=== PATIENT | male | born 1950 | race Caucasian/White ===

== ENCOUNTER 2019-01-27 19:48 | Inpatient (IN) | payer MEDICARE, OTHER ==
[~2019-01-27] VITALS: Ht 175.3 cm; Wt 88.1 kg
[~2019-01-27 19:48] MED LIST: ATOR10TA69 PO; CHOL100046 PO; DIPH25CA83 PO; DONE5TAB33 PO; FINA5TAB11 PO; GABA-529 PO; INSULIN ASPART; INSULIN GLARGINE; MELA5TAB3 PO; MEMA10TA2 PO; PROP80CA2 PO; SERT25TA74 PO; TAMS0.4C31 PO
[2019-01-27] MEDS ORDERED: ONDANSETRON HCL 4MG/2ML INJ IV STA (20:07)
[2019-01-27] MEDS ORDERED: SODIUM CHLORIDE 0.9% 1,000 ML IV ONE ×3 (20:07→23:30)
[2019-01-27 20:24] LABS: BG BASE EXCESS -20.3 mmol/L (-2.0-2.0); BG CARBOXYHEMOGLOBIN 0.8 % (0.5-1.5); BG DEOXYHEMOGLOBIN 7.3 % (0.0-5.0); BG FRACTION INSPIRED OXYGEN 21; BG HCO3 ACT 8.3 mmol/L (22.0-26.0); BG METHEMOGLOBIN 0.5 % (0.0-1.5); BG OXYGEN SATURATION 92.6 % (92.0-98.5); BG OXYHEMOGLOBIN 91.4 % (94.0-97.0); BG PCO2 28.2 mmHg (35.0-45.0); BG PH 7.085 (7.350-7.450); BG PO2 69.8 mmHg (75.0-100.0); BG SAMPLE SITE LEFT BRACHIAL; BG TOTAL HEMOGLOBIN 14.8 g/dL (12.0-18.0); BG VENT MODE ROOM AIR
[2019-01-27 20:58] LABS: BASOPHILS % 0.8 % (0.0-2.0); EOSINOPHILS % 0.1 % (0.0-5.0); HEMATOCRIT. 47.3 % (42.0-52.0); HEMOGLOBIN. 14.7 g/dL (14.0-18.0); LYMPHOCYTES % 7.4 % (20.0-50.0); MEAN CORPUSCULAR HEMOGLOBIN 31.2 pg (28.0-32.0); MEAN CORPUSCULAR VOLUME 100.2 fL (80.0-94.0); MONOCYTES % 6.5 % (2.0-8.0); NEUTROPHILS % 85.2 % (40.0-76.0); PLATELET 188 x1000/uL (130-400); RED BLOOD CELL COUNT 4.72 mill/uL (4.7-6.1); RED CELL DISTRIBUTION WIDTH 15.9 % (11.6-14.6)
[2019-01-27 21:02] LABS: CHLORIDE 101 mEq/L (98-107)
[2019-01-27 21:11] LABS: PROTHROMBIN TIME 82.4 sec (9.1-11.1)
[2019-01-27] MEDS ORDERED: SODIUM CHLORIDE 0.9% 1,000 ML IV SCH (21:28)
[2019-01-27] MEDS ORDERED: CLONIDINE 0.1MG TABLET PO PRN (21:30)
[2019-01-27] MEDS ORDERED: ACETAMINOPHEN 325MG TABLET PO PRN (21:30)
[2019-01-27] MEDS ORDERED: INSULIN REGULAR (DRIP) 100 UNITS in SODIUM CHLORIDE 0.9% 99 ML IV SCH (21:30)
[2019-01-27] MEDS ORDERED: MAGNESIUM/ALUMINUM HYDROXIDE/SIMETHICONE 30ML UDC PO PRN (21:30)
[2019-01-27] MEDS ORDERED: DOCUSATE SODIUM 100MG CAPSULE PO PRN (21:30)
[2019-01-27] MEDS ORDERED: IPRATROPIUM/ALBUTEROL 0.5-3(2.5)MG/3ML NEB INH PRN (21:30)
[2019-01-27 21:45] LABS: INR 8.5
[2019-01-27 22:02] LABS: BETA HYDROXYBUTYRATE 15.5 mMol/L (0.0-0.3)
[2019-01-27 22:45] VITALS: BP 98/55
[2019-01-27] MEDS ORDERED: AZITHROMYCIN 500 MG in DEXT 5% WATER 250 ML IV SCH (22:45)
[2019-01-27] MEDS ORDERED: CEFTRIAXONE 1 G PREMIX 50 ML IV ONE (22:45)
[2019-01-27 23:00] VITALS: BP 90/66
[2019-01-27 23:15] VITALS: BP 88/51
[2019-01-27 23:30] VITALS: BP 97/49
[2019-01-27] MEDS ORDERED: DEXTROSE 50% WATER 50ML SYRINGE IV PRN ×2 (23:36→23:37)
[2019-01-27 23:45] VITALS: BP 95/54
[2019-01-27] MEDS ORDERED: TRAMADOL 50MG TABLET PO PRN (23:49)
[2019-01-28] VITALS (80 sets, daily range): BP systolic 83–117; BP diastolic 40–77
[2019-01-28] MEDS ORDERED: INSULIN REGULAR (DRIP) 100 UNITS in SODIUM CHLORIDE 0.9% 99 ML IV SCH ×2
[2019-01-28] MEDS: BLOOD SUGAR DIAGNOSTIC STRIP TEST SCH ×15 (00:16→23:36)
[2019-01-28] MEDS ORDERED: NOREPINEPHRINE 4 MG in DEXT 5% WATER 246 ML IV PRN (01:00)
[2019-01-28 01:03] LABS: T4 FREE 0.85 ng/dL (0.76-1.46)
[2019-01-28 01:49] LABS: FOLIC ACID (FOLATE) SERUM > 20.00 ng/mL (>5.38); VITAMIN B12 SERUM 1943 pg/mL (211-911)
[2019-01-28] MEDS: DEXT 5% WATER + KCL 20MEQ/L 1,000 ML IV SCH ×3 (05:12→22:01)
[2019-01-28 05:55] LABS: BASOPHILS % 0.2 % (0.0-2.0); HEMATOCRIT. 40.8 % (42.0-52.0); HEMOGLOBIN. 13.2 g/dL (14.0-18.0); LYMPHOCYTES % 8.5 % (20.0-50.0); MEAN CORPUSCULAR HEMOGLOBIN 30.7 pg (28.0-32.0); MEAN PLATELET VOLUME 8.4 fl (7.4-10.4); MONOCYTES % 14.9 % (2.0-8.0); NEUTROPHILS % 76.4 % (40.0-76.0); PLATELET 179 x1000/uL (130-400); RED BLOOD CELL COUNT 4.29 mill/uL (4.7-6.1); RED CELL DISTRIBUTION WIDTH 15.1 % (11.6-14.6)
[2019-01-28 06:02] LABS: PHOSPHORUS 3.6 mg/dL (2.5-4.9)
[2019-01-28 07:24] LABS: CLARITY URINE CLEAR (CLEAR); COLOR URINE YELLOW (YELLOW); KETONES URINE 3+ (NEGATIVE); LEUKOCYTE ESTERASE URINE NEGATIVE (NEGATIVE); NITRITE URINE NEGATIVE (NEGATIVE); OCCULT BLOOD URINE NEGATIVE (NEGATIVE); PROTEIN URINE NEGATIVE (NEGATIVE); SPECIFIC GRAVITY URINE 1.022 (1.005-1.030); UROBILINOGEN URINE 0.2 E.U./dL (0.2-1.0)
[2019-01-28] MEDS: PANTOPRAZOLE SODIUM 40 MG/VIAL IV SCH (08:47)
[2019-01-28] MEDS: DUTASTERIDE 0.5MG CAPSULE PO SCH (08:47)
[2019-01-28] MEDS: TAMSULOSIN HCL 0.4MG SR CAPSULE PO SCH (08:48)
[2019-01-28] MEDS ORDERED: ENOXAPARIN 40MG/0.4ML SYR SUBCUT SCH (09:00)
[2019-01-28] MEDS ORDERED: INSULIN GLARGINE UD 100 UNITS/ML SYR SUBCUT NR (12:00)
[2019-01-28] MEDS ORDERED: DEXTROSE 50% WATER 50ML SYRINGE IV PRN ×2 (12:00)
[2019-01-28] MEDS: INSULIN LISPRO 100 UNITS/ML SUBCUT SCH ×6 (12:00→23:36)
[2019-01-28] MEDS ORDERED: INSULIN LISPRO 100 UNITS/ML SUBCUT SCH (12:00)
[2019-01-28 13:18] LABS: BG BASE EXCESS -2.7 mmol/L (-2.0-2.0); BG CARBOXYHEMOGLOBIN 0.7 % (0.5-1.5); BG DEOXYHEMOGLOBIN 4.6 % (0.0-5.0); BG FRACTION INSPIRED OXYGEN 28; BG HCO3 ACT 24.8 mmol/L (22.0-26.0); BG METHEMOGLOBIN 0.3 % (0.0-1.5); BG OXYGEN SATURATION 95.4 % (92.0-98.5); BG OXYHEMOGLOBIN 94.4 % (94.0-97.0); BG PCO2 54.4 mmHg (35.0-45.0); BG PH 7.277 (7.350-7.450); BG PO2 72.9 mmHg (75.0-100.0); BG SAMPLE SITE RIGHT RADIAL; BG TOTAL HEMOGLOBIN 13.7 g/dL (12.0-18.0); BG VENT MODE NASAL CANNULA
[2019-01-28] MEDS ORDERED: BLOOD SUGAR DIAGNOSTIC STRIP TEST SCH ×2 (16:30)
[2019-01-29] VITALS (24 sets, daily range): BP systolic 99–140; BP diastolic 53–85
[2019-01-29] MEDS: INSULIN LISPRO 100 UNITS/ML SUBCUT SCH ×9 (03:57→23:25)
[2019-01-29] MEDS: BLOOD SUGAR DIAGNOSTIC STRIP TEST SCH ×6 (03:57→23:25)
[2019-01-29 06:14] LABS: PROTHROMBIN TIME 86.8 sec (9.1-11.1)
[2019-01-29] MEDS: DEXT 5% WATER + KCL 20MEQ/L 1,000 ML IV SCH ×2 (08:19→19:45)
[2019-01-29] MEDS: DUTASTERIDE 0.5MG CAPSULE PO SCH (09:00)
[2019-01-29] MEDS: TAMSULOSIN HCL 0.4MG SR CAPSULE PO SCH (09:00)
[2019-01-29] MEDS: PANTOPRAZOLE SODIUM 40 MG/VIAL IV SCH (09:43)
[2019-01-29] MEDS ORDERED: INSULIN GLARGINE UD 100 UNITS/ML SYR SUBCUT SCH (10:00)
[2019-01-29] MEDS: ONDANSETRON HCL 4MG/2ML INJ IV PRN (22:38)
[2019-01-30] VITALS (72 sets, daily range): BP systolic 86–157; BP diastolic 53–94
[2019-01-30] MEDS ORDERED: DILTIAZEM HCL 125 MG in DEXT 5% WATER 100 ML IV PRN ×2 (02:15→10:40)
[2019-01-30] MEDS: BLOOD SUGAR DIAGNOSTIC STRIP TEST SCH ×6 (04:16→23:57)
[2019-01-30] MEDS: INSULIN LISPRO 100 UNITS/ML SUBCUT SCH ×9 (05:02→23:57)
[2019-01-30 05:22] LABS: BASOPHILS % 0.5 % (0.0-2.0); EOSINOPHILS % 0.2 % (0.0-5.0); HEMATOCRIT. 41.2 % (42.0-52.0); HEMOGLOBIN. 13.6 g/dL (14.0-18.0); LYMPHOCYTES % 18.7 % (20.0-50.0); MEAN CORPUSCULAR HEMOGLOBIN 31.3 pg (28.0-32.0); MEAN CORPUSCULAR VOLUME 94.5 fL (80.0-94.0); MEAN PLATELET VOLUME 8.4 fl (7.4-10.4); MONOCYTES % 10.7 % (2.0-8.0); NEUTROPHILS % 69.9 % (40.0-76.0); PLATELET 143 x1000/uL (130-400); RED BLOOD CELL COUNT 4.36 mill/uL (4.7-6.1); RED CELL DISTRIBUTION WIDTH 15.4 % (11.6-14.6)
[2019-01-30 05:37] LABS: CHLORIDE 105 mEq/L (98-107)
[2019-01-30 05:44] LABS: INR 3.5; PROTHROMBIN TIME 34.9 sec (9.1-11.1)
[2019-01-30] MEDS: DEXT 5% WATER + KCL 20MEQ/L 1,000 ML IV SCH ×2 (05:54→17:17)
[2019-01-30] MEDS: PANTOPRAZOLE SODIUM 40 MG/VIAL IV SCH (08:27)
[2019-01-30] MEDS: DUTASTERIDE 0.5MG CAPSULE PO SCH (09:00)
[2019-01-30] MEDS: TAMSULOSIN HCL 0.4MG SR CAPSULE PO SCH (09:00)
[2019-01-30] MEDS: GUAIFENESIN 200MG/10ML SUGAR FREE UDC PO PRN (20:04)
[2019-01-30] MEDS: METOPROLOL TARTRATE 50MG TABLET PO SCH (20:14)
[2019-01-30 20:19] LABS: T4 FREE 1.24 ng/dL (0.76-1.46)
[2019-01-30] MEDS: ACETAMINOPHEN 650MG/20.3ML UDC PO PRN (22:11)
[2019-01-30 23:06] LABS: BASOPHILS % 0.4 % (0.0-2.0); EOSINOPHILS % 0.2 % (0.0-5.0); HEMATOCRIT. 42.7 % (42.0-52.0); LYMPHOCYTES % 15.5 % (20.0-50.0); MEAN CORPUSCULAR HEMOGLOBIN 30.8 pg (28.0-32.0); MEAN CORPUSCULAR VOLUME 94.3 fL (80.0-94.0); MEAN PLATELET VOLUME 8.4 fl (7.4-10.4); MONOCYTES % 10.2 % (2.0-8.0); NEUTROPHILS % 73.7 % (40.0-76.0); PLATELET 132 x1000/uL (130-400); RED BLOOD CELL COUNT 4.53 mill/uL (4.7-6.1); RED CELL DISTRIBUTION WIDTH 14.8 % (11.6-14.6)
[2019-01-30 23:19] LABS: CHLORIDE 102 mEq/L (98-107)
[2019-01-30 23:28] LABS: CREATINE KINASE 47 IU/L (39-308)
[2019-01-30 23:30] LABS: CREATINE KINASE MB FRACTION < 1.0 ng/mL (0.5-3.6)
[2019-01-31] VITALS (26 sets, daily range): BP systolic 91–129; BP diastolic 45–72
[2019-01-31] MEDS: DEXT 5% WATER + KCL 20MEQ/L 1,000 ML IV SCH (02:32)
[2019-01-31] MEDS: ACETAMINOPHEN 650MG/20.3ML UDC PO PRN (04:00)
[2019-01-31] MEDS: INSULIN LISPRO 100 UNITS/ML SUBCUT SCH ×8 (04:07→20:27)
[2019-01-31] MEDS: BLOOD SUGAR DIAGNOSTIC STRIP TEST SCH ×5 (04:08→20:27)
[2019-01-31 05:33] LABS: INR 2.2
[2019-01-31 05:44] LABS: CREATINE KINASE MB FRACTION < 1.0 ng/mL (0.5-3.6)
[2019-01-31 08:00] LABS: CREATINE KINASE 48 IU/L (39-308)
[2019-01-31] MEDS: DUTASTERIDE 0.5MG CAPSULE PO SCH (09:00)
[2019-01-31] MEDS: GUAIFENESIN 200MG/10ML SUGAR FREE UDC PO PRN ×3 (09:27→22:44)
[2019-01-31] MEDS: PANTOPRAZOLE SODIUM 40 MG/VIAL IV SCH (09:30)
[2019-01-31] MEDS: TAMSULOSIN HCL 0.4MG SR CAPSULE PO SCH (09:52)
[2019-01-31] MEDS: METOPROLOL TARTRATE 50MG TABLET PO SCH ×2 (09:52→20:27)
[2019-01-31] MEDS: INSULIN GLARGINE UD 100 UNITS/ML SYR SUBCUT SCH (11:57)
[2019-01-31] MEDS: DILTIAZEM HCL 60MG TABLET PO SCH ×2 (12:00→18:00)
[2019-01-31 16:59] LABS: CREATINE KINASE 41 IU/L (39-308)
[2019-01-31 17:00] LABS: CREATINE KINASE MB FRACTION < 1.0 ng/mL (0.5-3.6)
[2019-01-31] MEDS ORDERED: WARFARIN SODIUM 1MG TABLET PO NR (18:00)
[2019-02-01] VITALS (19 sets, daily range): BP systolic 92–121; BP diastolic 46–66
[2019-02-01] MEDS: ZOLPIDEM TARTRATE 5MG TABLET PO PRN ×2 (02:44→21:19)
[2019-02-01] MEDS: DILTIAZEM HCL 60MG TABLET PO SCH ×5 (06:13→23:15)
[2019-02-01] MEDS: BLOOD SUGAR DIAGNOSTIC STRIP TEST SCH ×4 (06:13→20:49)
[2019-02-01 06:36] LABS: BASOPHILS % 0.7 % (0.0-2.0); EOSINOPHILS % 3.8 % (0.0-5.0); HEMATOCRIT. 40.3 % (42.0-52.0); HEMOGLOBIN. 13.3 g/dL (14.0-18.0); LYMPHOCYTES % 27.8 % (20.0-50.0); MEAN CORPUSCULAR HEMOGLOBIN 31.2 pg (28.0-32.0); MEAN CORPUSCULAR VOLUME 94.6 fL (80.0-94.0); MEAN PLATELET VOLUME 8.7 fl (7.4-10.4); MONOCYTES % 10.3 % (2.0-8.0); NEUTROPHILS % 57.4 % (40.0-76.0); PLATELET 154 x1000/uL (130-400); RED BLOOD CELL COUNT 4.26 mill/uL (4.7-6.1); RED CELL DISTRIBUTION WIDTH 14.5 % (11.6-14.6)
[2019-02-01 06:41] LABS: INR 1.3; PROTHROMBIN TIME 13.1 sec (9.1-11.1)
[2019-02-01 06:58] LABS: CHLORIDE 101 mEq/L (98-107)
[2019-02-01] MEDS: DUTASTERIDE 0.5MG CAPSULE PO SCH (09:14)
[2019-02-01] MEDS: PANTOPRAZOLE SODIUM 40 MG/VIAL IV SCH (09:14)
[2019-02-01] MEDS: TAMSULOSIN HCL 0.4MG SR CAPSULE PO SCH (09:15)
[2019-02-01] MEDS: METOPROLOL TARTRATE 50MG TABLET PO SCH ×2 (09:15→20:22)
[2019-02-01] MEDS: INSULIN GLARGINE UD 100 UNITS/ML SYR SUBCUT SCH (09:16)
[2019-02-01] MEDS: INSULIN LISPRO 100 UNITS/ML SUBCUT SCH ×7 (09:17→20:50)
[2019-02-01] MEDS ORDERED: WARFARIN SODIUM 3MG TABLET PO NR (18:00)
[2019-02-02] VITALS (31 sets, daily range): BP systolic 78–141; BP diastolic 36–82
[2019-02-02 05:43] LABS: INR 1.2
[2019-02-02] MEDS: DILTIAZEM HCL 60MG TABLET PO SCH ×4 (06:00→23:26)
[2019-02-02] MEDS: BLOOD SUGAR DIAGNOSTIC STRIP TEST SCH ×4 (06:18→21:00)
[2019-02-02] MEDS: INSULIN LISPRO 100 UNITS/ML SUBCUT SCH ×7 (06:18→21:13)
[2019-02-02] MEDS: DUTASTERIDE 0.5MG CAPSULE PO SCH (09:30)
[2019-02-02] MEDS: METOPROLOL TARTRATE 50MG TABLET PO SCH ×2 (09:31→21:08)
[2019-02-02] MEDS: TAMSULOSIN HCL 0.4MG SR CAPSULE PO SCH (09:31)
[2019-02-02] MEDS: PANTOPRAZOLE SODIUM 40 MG/VIAL IV SCH (09:32)
[2019-02-02] MEDS: INSULIN GLARGINE UD 100 UNITS/ML SYR SUBCUT SCH (09:32)
[2019-02-02 12:32] LABS: BG BASE EXCESS 6.9 mmol/L (-2.0-2.0); BG CARBOXYHEMOGLOBIN 0.6 % (0.5-1.5); BG DEOXYHEMOGLOBIN 7.6 % (0.0-5.0); BG FRACTION INSPIRED OXYGEN 28; BG HCO3 ACT 31.4 mmol/L (22.0-26.0); BG METHEMOGLOBIN 0.3 % (0.0-1.5); BG OXYGEN SATURATION 92.3 % (92.0-98.5); BG OXYHEMOGLOBIN 91.5 % (94.0-97.0); BG PCO2 44.3 mmHg (35.0-45.0); BG PH 7.469 (7.350-7.450); BG PO2 60.2 mmHg (75.0-100.0); BG SAMPLE SITE LEFT RADIAL; BG TOTAL HEMOGLOBIN 13.6 g/dL (12.0-18.0); BG VENT MODE NASAL CANNULA
[2019-02-02] MEDS: ONDANSETRON HCL 4MG/2ML INJ IV PRN (14:32)
[2019-02-02] MEDS: LACTULOSE 20G/30ML UDC PO SCH ×3 (15:53→20:53)
[2019-02-02] MEDS ORDERED: LACTULOSE 20G/30ML UDC PO STA (15:54)
[2019-02-02] MEDS ORDERED: DOCUSATE SODIUM 100MG CAPSULE PO SCH (17:00)
[2019-02-02] MEDS: DOCUSATE SODIUM 100MG CAPSULE PO SCH (17:18)
[2019-02-02] MEDS ORDERED: WARFARIN SODIUM 3MG TABLET PO NR (18:00)
[2019-02-02] MEDS: GUAIFENESIN 200MG/10ML SUGAR FREE UDC PO PRN (19:22)
[2019-02-02] MEDS ORDERED: POLYETHYLENE GLYCOL 3350 (17GM) 1 DOSE PACK PO SCH ×2 (21:00)
[2019-02-02] MEDS ORDERED: INSULIN GLARGINE UD 100 UNITS/ML SYR SUBCUT SCH (22:00)
[2019-02-03] VITALS (23 sets, daily range): BP systolic 81–129; BP diastolic 20–74
[2019-02-03] MEDS: ONDANSETRON HCL 4MG/2ML INJ IV PRN (01:45)
[2019-02-03 05:59] LABS: CHLORIDE 103 mEq/L (98-107)
[2019-02-03 06:03] LABS: BASOPHILS % 0.6 % (0.0-2.0); EOSINOPHILS % 5.3 % (0.0-5.0); HEMATOCRIT. 37.8 % (42.0-52.0); HEMOGLOBIN. 12.6 g/dL (14.0-18.0); LYMPHOCYTES % 31.5 % (20.0-50.0); MEAN CORPUSCULAR HEMOGLOBIN 31.2 pg (28.0-32.0); MEAN CORPUSCULAR VOLUME 94.1 fL (80.0-94.0); MEAN PLATELET VOLUME 8.7 fl (7.4-10.4); MONOCYTES % 11.8 % (2.0-8.0); NEUTROPHILS % 50.8 % (40.0-76.0); PLATELET 192 x1000/uL (130-400); RED BLOOD CELL COUNT 4.02 mill/uL (4.7-6.1); RED CELL DISTRIBUTION WIDTH 14.4 % (11.6-14.6)
[2019-02-03] MEDS: BLOOD SUGAR DIAGNOSTIC STRIP TEST SCH ×2 (06:18→11:36)
[2019-02-03] MEDS: INSULIN LISPRO 100 UNITS/ML SUBCUT SCH ×4 (06:18→11:45)
[2019-02-03] MEDS: DILTIAZEM HCL 60MG TABLET PO SCH (06:19)
[2019-02-03 06:20] LABS: INR 1.1; PROTHROMBIN TIME 11.4 sec (9.1-11.1)
[2019-02-03] MEDS: PANTOPRAZOLE SODIUM 40 MG/VIAL IV SCH (08:14)
[2019-02-03] MEDS: GUAIFENESIN 200MG/10ML SUGAR FREE UDC PO PRN (08:14)
[2019-02-03] MEDS: DUTASTERIDE 0.5MG CAPSULE PO SCH (08:19)
[2019-02-03] MEDS: TAMSULOSIN HCL 0.4MG SR CAPSULE PO SCH (08:19)
[2019-02-03] MEDS: DOCUSATE SODIUM 100MG CAPSULE PO SCH (08:21)
[2019-02-03] MEDS ORDERED: METOPROLOL TARTRATE 25MG TABLET PO SCH (09:00)
[2019-02-03 09:24] LABS: BG BASE EXCESS 5.8 mmol/L (-2.0-2.0); BG CARBOXYHEMOGLOBIN 0.1 % (0.5-1.5); BG FRACTION INSPIRED OXYGEN 28; BG HCO3 ACT 30.7 mmol/L (22.0-26.0); BG METHEMOGLOBIN 0.7 % (0.0-1.5); BG OXYHEMOGLOBIN 97.2 % (94.0-97.0); BG PCO2 45.3 mmHg (35.0-45.0); BG PH 7.449 (7.350-7.450); BG PO2 110.8 mmHg (75.0-100.0); BG SAMPLE SITE RIGHT BRACHIAL; BG TOTAL HEMOGLOBIN 14.4 g/dL (12.0-18.0); BG VENT MODE NASAL CANNULA
[2019-02-03] MEDS ORDERED: BISACODYL 10MG SUPP PR PRN (16:45)
[2019-02-03] MEDS ORDERED: WARFARIN SODIUM 5MG TABLET PO NR (18:00)
[2019-02-04] MEDS ORDERED: SODIUM CHLORIDE 0.9% 1,000 ML IV SCH (12:15)
== END 2019-02-03 17:00 | DRG 637 ==
LOC: ER 19:48 → EDBEDREQSVC 20:53 → EDBEDREQTM 20:53 → ENRESERV 21:23 → MICUSO 21:24 → EDBEDREQ 21:25 → EDBEDREQTM 21:25 → SUPCPDRO 21:28
PROVIDERS: ADMIT Internal Medicine; ATTEND Internal Medicine
DX: E11.10 Type 2 diabetes mellitus with ketoacidosis without coma (principal); N17.0 Acute kidney failure with tubular necrosis; D68.9 Coagulation defect, unspecified; D68.59 Other primary thrombophilia; G93.40 Encephalopathy, unspecified; J98.11 Atelectasis; H54.8 Legal blindness, as defined in USA; I10 Essential (primary) hypertension; F32.9 Major depressive disorder, single episode, unspecified; I95.9 Hypotension, unspecified; R26.9 Unspecified abnormalities of gait and mobility; I48.0 Paroxysmal atrial fibrillation; N32.89 Other specified disorders of bladder; N40.0 Benign prostatic hyperplasia without lower urinary tract symptoms; R13.10 Dysphagia, unspecified; T45.515A Adverse effect of anticoagulants, initial encounter; Y92.89 Other specified places as the place of occurrence of the external cause; Z79.01 Long term (current) use of anticoagulants; Z86.718 Personal history of other venous thrombosis and embolism; Z86.73 Personal history of transient ischemic attack (TIA), and cerebral infarction without residual deficits; Z88.1 Allergy status to other antibiotic agents; Z79.899 Other long term (current) drug therapy
CPT/HCPCS: 36415; 36600; 70551; 71045; 74176; 76770; 80048; 80061; 82010; 82375; 82550; 82553; 82607; 82746; 82805; 82962; 83036; 83540; 83550; 83605; 83735; 83880; 84100; 84439; 84443; 84484; 85379; 92610; 93005; 93306; 93970; 96361; 96374; 97110; 97162; 97166; 97530; 97535; 99291; C9113; J0456; J1815; J2405; J3490; J7030; J7050; J7060; A4315

== ENCOUNTER 2019-02-03 17:00 | Inpatient (IN) | payer MEDICARE, OTHER ==
[~2019-02-03] VITALS: Ht 175.3 cm; Wt 80.4 kg
[~2019-02-03 17:00] MED LIST changes: +LIDOCAINE HCL/PF 1% 2ML VIAL ONE
[2019-02-03 17:10] VITALS: BP 116/56
[2019-02-03 18:00] VITALS: BP 116/56
[2019-02-03 20:30] VITALS: BP 111/50
[2019-02-03] MEDS ORDERED: CLONIDINE 0.1MG TABLET PO PRN (20:45)
[2019-02-03] MEDS ORDERED: MAGNESIUM/ALUMINUM HYDROXIDE/SIMETHICONE 30ML UDC PO PRN (20:45)
[2019-02-03] MEDS ORDERED: ACETAMINOPHEN 500MG TABLET PO PRN (20:45)
[2019-02-03] MEDS ORDERED: IPRATROPIUM/ALBUTEROL 0.5-3(2.5)MG/3ML NEB HHN PRN ×2 (20:45→21:15)
[2019-02-03] MEDS ORDERED: DEXTROSE 50% WATER 50ML SYRINGE IV PRN (21:02)
[2019-02-03] MEDS ORDERED: ACETAMINOPHEN 650MG/20.3ML UDC PO PRN (21:15)
[2019-02-03] MEDS: POLYETHYLENE GLYCOL 3350 (17GM) 1 DOSE PACK PO SCH (21:32)
[2019-02-03] MEDS: BLOOD SUGAR DIAGNOSTIC STRIP TEST SCH (21:32)
[2019-02-03] MEDS: ACETAMINOPHEN 325MG TABLET PO PRN (21:32)
[2019-02-03] MEDS: INSULIN LISPRO 100 UNITS/ML SUBCUT SCH (21:36)
[2019-02-03] MEDS: INSULIN GLARGINE UD 100 UNITS/ML SYR SUBCUT SCH (21:52)
[2019-02-03] MEDS: DIPHENHYDRAMINE 50MG CAPSULE PO PRN (23:26)
[2019-02-04] MEDS ORDERED: WARFARIN SODIUM 5MG TABLET PO NR ×3 (00:45→18:00)
[2019-02-04] MEDS ORDERED: WARFARIN SODIUM 2MG TABLET PO NR (00:48)
[2019-02-04] MEDS: BLOOD SUGAR DIAGNOSTIC STRIP TEST SCH ×4 (06:23→21:46)
[2019-02-04 07:33] LABS: INR 1.1; PROTHROMBIN TIME 11.4 sec (9.1-11.1)
[2019-02-04 07:36] LABS: CHLORIDE 102 mEq/L (98-107)
[2019-02-04 07:40] LABS: BASOPHILS % 0.6 % (0.0-2.0); EOSINOPHILS % 5.5 % (0.0-5.0); HEMATOCRIT. 38.1 % (42.0-52.0); HEMOGLOBIN. 12.6 g/dL (14.0-18.0); LYMPHOCYTES % 34.8 % (20.0-50.0); MEAN CORPUSCULAR HEMOGLOBIN 31.2 pg (28.0-32.0); MEAN CORPUSCULAR VOLUME 94.2 fL (80.0-94.0); MEAN PLATELET VOLUME 8.6 fl (7.4-10.4); MONOCYTES % 12.7 % (2.0-8.0); NEUTROPHILS % 46.4 % (40.0-76.0); PLATELET 209 x1000/uL (130-400); RED BLOOD CELL COUNT 4.04 mill/uL (4.7-6.1)
[2019-02-04] MEDS: DUTASTERIDE 0.5MG CAPSULE PO SCH (08:00)
[2019-02-04] MEDS: TAMSULOSIN HCL 0.4MG SR CAPSULE PO SCH (08:06)
[2019-02-04] MEDS: ACETAMINOPHEN 325MG TABLET PO PRN ×2 (08:06→14:37)
[2019-02-04] MEDS: DOCUSATE SODIUM 100MG CAPSULE PO SCH ×2 (08:06→17:43)
[2019-02-04 08:07] VITALS: BP 104/41
[2019-02-04] MEDS: INSULIN LISPRO 100 UNITS/ML SUBCUT SCH ×7 (08:09→21:52)
[2019-02-04] MEDS: METOPROLOL TARTRATE 25MG TABLET PO SCH ×2 (08:10→20:40)
[2019-02-04] MEDS: PANTOPRAZOLE 40MG DR TABLET PO SCH (08:10)
[2019-02-04] MEDS ORDERED: DOCUSATE SODIUM 100MG CAPSULE PO SCH (09:00)
[2019-02-04] MEDS: ONDANSETRON HCL 4MG TABLET PO PRN ×2 (09:59→14:37)
[2019-02-04] MEDS ORDERED: SODIUM CHLORIDE 0.9% 1,000 ML IV ONE (14:00)
[2019-02-04] MEDS: ENOXAPARIN 80MG/0.8ML SYR SUBCUT SCH ×2 (14:04→23:20)
[2019-02-04 20:00] VITALS: BP 96/54
[2019-02-04] MEDS: POLYETHYLENE GLYCOL 3350 (17GM) 1 DOSE PACK PO SCH (20:40)
[2019-02-04] MEDS: INSULIN GLARGINE UD 100 UNITS/ML SYR SUBCUT SCH (21:52)
[2019-02-04] MEDS: DIPHENHYDRAMINE 50MG CAPSULE PO PRN (23:19)
[2019-02-05] MEDS: GUAIFENESIN 200MG/10ML SUGAR FREE UDC PO PRN (03:43)
[2019-02-05] MEDS: ACETAMINOPHEN 325MG TABLET PO PRN ×2 (04:49→13:39)
[2019-02-05] MEDS: BLOOD SUGAR DIAGNOSTIC STRIP TEST SCH ×4 (06:32→21:53)
[2019-02-05 06:52] LABS: CHLORIDE 103 mEq/L (98-107)
[2019-02-05 06:55] LABS: EOSINOPHILS % 4.6 % (0.0-5.0); HEMATOCRIT. 36.4 % (42.0-52.0); HEMOGLOBIN. 12.1 g/dL (14.0-18.0); LYMPHOCYTES % 37.2 % (20.0-50.0); MEAN CORPUSCULAR HEMOGLOBIN 31.3 pg (28.0-32.0); MEAN CORPUSCULAR VOLUME 94.1 fL (80.0-94.0); MEAN PLATELET VOLUME 8.7 fl (7.4-10.4); MONOCYTES % 12.8 % (2.0-8.0); NEUTROPHILS % 44.4 % (40.0-76.0); PLATELET 206 x1000/uL (130-400); RED BLOOD CELL COUNT 3.87 mill/uL (4.7-6.1); RED CELL DISTRIBUTION WIDTH 14.1 % (11.6-14.6)
[2019-02-05 07:05] LABS: LDL CHOLESTEROL 74 mg/dL (5-100); PHOSPHORUS 2.5 mg/dL (2.5-4.9)
[2019-02-05 07:06] LABS: INR 1.2; PROTHROMBIN TIME 11.6 sec (9.1-11.1)
[2019-02-05 07:07] LABS: HDL CHOLESTEROL 41 mg/dL (40-59)
[2019-02-05 07:08] LABS: TOTAL IRON BINDING CAPACITY 256 ug/dL (250-450)
[2019-02-05 07:16] LABS: PROSTRATE SPECIFIC AG TOTAL 0.43 ng/mL (0.0-4.0)
[2019-02-05 07:19] LABS: FOLIC ACID (FOLATE) SERUM 12.7 ng/mL (>5.38)
[2019-02-05] MEDS: INSULIN LISPRO 100 UNITS/ML SUBCUT SCH ×7 (07:58→21:00)
[2019-02-05] MEDS: PANTOPRAZOLE 40MG DR TABLET PO SCH (08:00)
[2019-02-05] MEDS: DOCUSATE SODIUM 100MG CAPSULE PO SCH ×2 (08:00→17:00)
[2019-02-05] MEDS: DUTASTERIDE 0.5MG CAPSULE PO SCH (08:00)
[2019-02-05 08:08] VITALS: BP 107/49
[2019-02-05] MEDS: TAMSULOSIN HCL 0.4MG SR CAPSULE PO SCH (08:26)
[2019-02-05] MEDS: METOPROLOL TARTRATE 25MG TABLET PO SCH ×2 (08:27→21:58)
[2019-02-05] MEDS: NA PHOS,M-B/NA PHOS,DI-BA ENEMA 118ML PR SCH ×2 (09:15→11:47)
[2019-02-05] MEDS ORDERED: LACTULOSE 20G/30ML UDC PO PRN (09:15)
[2019-02-05] MEDS: ENOXAPARIN 80MG/0.8ML SYR SUBCUT SCH ×2 (12:37→23:37)
[2019-02-05] MEDS: DIPHENHYDRAMINE 50MG CAPSULE PO PRN ×2 (17:44→18:32)
[2019-02-05] MEDS ORDERED: WARFARIN SODIUM 5MG TABLET PO SCH (18:00)
[2019-02-05 20:00] VITALS: BP 125/67
[2019-02-05] MEDS: POLYETHYLENE GLYCOL 3350 (17GM) 1 DOSE PACK PO SCH (21:58)
[2019-02-05] MEDS: INSULIN GLARGINE UD 100 UNITS/ML SYR SUBCUT SCH (22:13)
[2019-02-06 06:58] LABS: INR 1.2; PROTHROMBIN TIME 12.3 sec (9.1-11.1)
[2019-02-06] MEDS: BLOOD SUGAR DIAGNOSTIC STRIP TEST SCH ×4 (07:07→21:26)
[2019-02-06 08:00] VITALS: BP 76/42
[2019-02-06] MEDS: DUTASTERIDE 0.5MG CAPSULE PO SCH (08:13)
[2019-02-06] MEDS: FAMOTIDINE 20MG TABLET PO SCH ×2 (08:14→21:16)
[2019-02-06] MEDS: METOPROLOL TARTRATE 25MG TABLET PO SCH ×2 (08:14→21:00)
[2019-02-06] MEDS: TAMSULOSIN HCL 0.4MG SR CAPSULE PO SCH (08:14)
[2019-02-06] MEDS: DOCUSATE SODIUM 100MG CAPSULE PO SCH ×2 (08:15→17:24)
[2019-02-06] MEDS: INSULIN LISPRO 100 UNITS/ML SUBCUT SCH ×5 (08:20→17:27)
[2019-02-06] MEDS: MIDODRINE HCL 2.5MG TABLET PO SCH ×3 (09:30→17:24)
[2019-02-06] MEDS: ACETAMINOPHEN 325MG TABLET PO PRN (09:31)
[2019-02-06] MEDS: ONDANSETRON HCL 4MG TABLET PO PRN (11:27)
[2019-02-06] MEDS ORDERED: SODIUM CHLORIDE 0.9% 250 ML IV ONE (11:45)
[2019-02-06] MEDS ORDERED: SODIUM CHLORIDE 0.9% 250 ML IV NR (12:00)
[2019-02-06] MEDS: ENOXAPARIN 80MG/0.8ML SYR SUBCUT SCH (12:40)
[2019-02-06] MEDS ORDERED: INSULIN LISPRO 100 UNITS/ML SUBCUT SCH (13:00)
[2019-02-06] MEDS: DIPHENHYDRAMINE 50MG CAPSULE PO PRN (15:31)
[2019-02-06] MEDS: INSULIN LISPRO (LOW DOSE) 100 UNITS/ML SUBCUT SCH (17:28)
[2019-02-06] MEDS ORDERED: WARFARIN SODIUM 5MG TABLET PO SCH (18:00)
[2019-02-06 20:00] VITALS: BP 90/48
[2019-02-06] MEDS: POLYETHYLENE GLYCOL 3350 (17GM) 1 DOSE PACK PO SCH (21:16)
[2019-02-06] MEDS: INSULIN GLARGINE UD 100 UNITS/ML SYR SUBCUT SCH (23:19)
[2019-02-07] MEDS: ENOXAPARIN 80MG/0.8ML SYR SUBCUT SCH ×3 (00:10→23:44)
[2019-02-07] MEDS: ACETAMINOPHEN 325MG TABLET PO PRN (03:37)
[2019-02-07] MEDS: BLOOD SUGAR DIAGNOSTIC STRIP TEST SCH ×4 (06:30→21:19)
[2019-02-07 06:51] LABS: INR 1.2; PROTHROMBIN TIME 12.1 sec (9.1-11.1)
[2019-02-07] MEDS: INSULIN LISPRO 100 UNITS/ML SUBCUT SCH ×3 (07:46→17:51)
[2019-02-07] MEDS: INSULIN LISPRO (LOW DOSE) 100 UNITS/ML SUBCUT SCH ×3 (07:47→17:50)
[2019-02-07 07:48] LABS: CHLORIDE 103 mEq/L (98-107)
[2019-02-07] MEDS: MIDODRINE HCL 2.5MG TABLET PO SCH ×3 (08:09→17:16)
[2019-02-07] MEDS: DUTASTERIDE 0.5MG CAPSULE PO SCH (08:09)
[2019-02-07] MEDS: FAMOTIDINE 20MG TABLET PO SCH ×2 (08:09→20:40)
[2019-02-07] MEDS: DOCUSATE SODIUM 100MG CAPSULE PO SCH ×2 (08:09→17:17)
[2019-02-07] MEDS: METOPROLOL TARTRATE 25MG TABLET PO SCH ×2 (08:10→20:40)
[2019-02-07 08:27] VITALS: BP 95/56
[2019-02-07 12:00] VITALS: BP 101/54
[2019-02-07 17:00] VITALS: BP 93/49
[2019-02-07] MEDS ORDERED: WARFARIN SODIUM 5MG TABLET PO SCH (18:00)
[2019-02-07 20:00] VITALS: BP_SYST 115; BP_SYST 88; BP_SYST 92; BP_DIAS 37; BP_DIAS 44; BP_DIAS 64
[2019-02-07] MEDS: TAMSULOSIN HCL 0.4MG SR CAPSULE PO SCH (20:40)
[2019-02-07] MEDS: POLYETHYLENE GLYCOL 3350 (17GM) 1 DOSE PACK PO SCH (20:40)
[2019-02-07] MEDS ORDERED: INSULIN GLARGINE UD 100 UNITS/ML SYR SUBCUT SCH (22:00)
[2019-02-07] MEDS: GUAIFENESIN 200MG/10ML SUGAR FREE UDC PO PRN (23:44)
[2019-02-08] MEDS ORDERED: COSYNTROPIN 0.25MG/ML VIAL IV ONE (05:15)
[2019-02-08 05:55] LABS: INR 1.3; PROTHROMBIN TIME 12.9 sec (9.1-11.1)
[2019-02-08] MEDS: BLOOD SUGAR DIAGNOSTIC STRIP TEST SCH ×4 (06:32→21:47)
[2019-02-08 07:58] VITALS: BP_SYST 101; BP_SYST 110; BP_SYST 92; BP_DIAS 44; BP_DIAS 48; BP_DIAS 52
[2019-02-08] MEDS: FAMOTIDINE 20MG TABLET PO SCH ×2 (08:28→21:41)
[2019-02-08] MEDS: DOCUSATE SODIUM 100MG CAPSULE PO SCH ×2 (08:28→16:43)
[2019-02-08] MEDS: MIDODRINE HCL 2.5MG TABLET PO SCH ×3 (08:28→16:43)
[2019-02-08] MEDS: DUTASTERIDE 0.5MG CAPSULE PO SCH (08:28)
[2019-02-08] MEDS: METOPROLOL TARTRATE 25MG TABLET PO SCH ×2 (08:29→21:00)
[2019-02-08] MEDS: INSULIN LISPRO 100 UNITS/ML SUBCUT SCH ×3 (08:32→17:25)
[2019-02-08] MEDS: INSULIN LISPRO (LOW DOSE) 100 UNITS/ML SUBCUT SCH ×3 (08:33→17:26)
[2019-02-08] MEDS: ENOXAPARIN 80MG/0.8ML SYR SUBCUT SCH (12:19)
[2019-02-08] MEDS ORDERED: WARFARIN SODIUM 7.5MG TABLET PO SCH (18:00)
[2019-02-08 20:00] VITALS: BP 94/35
[2019-02-08] MEDS: POLYETHYLENE GLYCOL 3350 (17GM) 1 DOSE PACK PO SCH (21:00)
[2019-02-08] MEDS: TAMSULOSIN HCL 0.4MG SR CAPSULE PO SCH (22:05)
[2019-02-08] MEDS: INSULIN GLARGINE UD 100 UNITS/ML SYR SUBCUT SCH (22:09)
[2019-02-09] MEDS: ENOXAPARIN 80MG/0.8ML SYR SUBCUT SCH ×3 (00:56→23:30)
[2019-02-09] MEDS: BLOOD SUGAR DIAGNOSTIC STRIP TEST SCH ×4 (06:09→21:27)
[2019-02-09 06:20] LABS: HEMATOCRIT 36.9 % (42.0-52.0); HEMOGLOBIN 12.1 g/dL (14.0-18.0); MEAN CORPUSCULAR HEMOGLOBIN 30.9 pg (28.0-32.0); MEAN CORPUSCULAR VOLUME 94.4 fL (80.0-94.0); PLATELET 229 x1000/uL (130-400); RED BLOOD CELL COUNT 3.91 mill/uL (4.7-6.1); RED CELL DISTRIBUTION WIDTH 14.5 % (11.6-14.6)
[2019-02-09 06:24] LABS: INR 1.4; PROTHROMBIN TIME 13.6 sec (9.1-11.1)
[2019-02-09] MEDS: INSULIN LISPRO (LOW DOSE) 100 UNITS/ML SUBCUT SCH ×3 (06:47→17:00)
[2019-02-09] MEDS: INSULIN LISPRO 100 UNITS/ML SUBCUT SCH ×3 (07:00→17:50)
[2019-02-09 08:00] VITALS: BP 110/56
[2019-02-09] MEDS: DUTASTERIDE 0.5MG CAPSULE PO SCH (09:05)
[2019-02-09] MEDS: FAMOTIDINE 20MG TABLET PO SCH ×2 (09:05→20:33)
[2019-02-09] MEDS: METOPROLOL TARTRATE 25MG TABLET PO SCH ×2 (09:06→20:33)
[2019-02-09] MEDS: MIDODRINE HCL 2.5MG TABLET PO SCH ×3 (09:07→17:15)
[2019-02-09] MEDS: DOCUSATE SODIUM 100MG CAPSULE PO SCH ×2 (09:07→17:20)
[2019-02-09 11:29] VITALS: BP_SYST 101; BP_SYST 110; BP_SYST 86; BP_DIAS 53; BP_DIAS 55; BP_DIAS 56
[2019-02-09] MEDS ORDERED: WARFARIN SODIUM 7.5MG TABLET PO SCH (18:00)
[2019-02-09 20:00] VITALS: BP 114/53
[2019-02-09] MEDS: TAMSULOSIN HCL 0.4MG SR CAPSULE PO SCH (20:32)
[2019-02-09] MEDS: POLYETHYLENE GLYCOL 3350 (17GM) 1 DOSE PACK PO SCH (20:32)
[2019-02-09] MEDS: INSULIN GLARGINE UD 100 UNITS/ML SYR SUBCUT SCH (21:28)
[2019-02-09] MEDS: DIPHENHYDRAMINE 50MG CAPSULE PO PRN (21:37)
[2019-02-10 06:27] LABS: INR 1.5; PROTHROMBIN TIME 14.8 sec (9.1-11.1)
[2019-02-10] MEDS: BLOOD SUGAR DIAGNOSTIC STRIP TEST SCH ×4 (06:37→21:40)
[2019-02-10] MEDS: INSULIN LISPRO (LOW DOSE) 100 UNITS/ML SUBCUT SCH ×3 (06:37→17:00)
[2019-02-10] MEDS: INSULIN LISPRO 100 UNITS/ML SUBCUT SCH ×3 (07:00→18:27)
[2019-02-10 08:00] VITALS: BP 116/58
[2019-02-10] MEDS: FAMOTIDINE 20MG TABLET PO SCH ×2 (08:54→20:56)
[2019-02-10] MEDS: MIDODRINE HCL 2.5MG TABLET PO SCH ×3 (08:54→17:22)
[2019-02-10] MEDS: METOPROLOL TARTRATE 25MG TABLET PO SCH ×2 (08:54→20:56)
[2019-02-10] MEDS: DUTASTERIDE 0.5MG CAPSULE PO SCH (08:54)
[2019-02-10] MEDS: DOCUSATE SODIUM 100MG CAPSULE PO SCH ×2 (08:54→17:16)
[2019-02-10] MEDS: ENOXAPARIN 80MG/0.8ML SYR SUBCUT SCH ×2 (12:12→23:20)
[2019-02-10] MEDS: SERTRALINE HCL 25MG TABLET PO SCH (17:16)
[2019-02-10] MEDS ORDERED: WARFARIN SODIUM 10MG TABLET PO SCH (18:00)
[2019-02-10 20:13] VITALS: BP 86/50
[2019-02-10 20:14] VITALS: BP 68/43
[2019-02-10 20:15] VITALS: BP 102/46
[2019-02-10 20:35] VITALS: BP_SYST 130; BP_SYST 89; BP_DIAS 53; BP_DIAS 66
[2019-02-10] MEDS: TAMSULOSIN HCL 0.4MG SR CAPSULE PO SCH (20:56)
[2019-02-10] MEDS: POLYETHYLENE GLYCOL 3350 (17GM) 1 DOSE PACK PO SCH (20:56)
[2019-02-10] MEDS: INSULIN GLARGINE UD 100 UNITS/ML SYR SUBCUT SCH (21:43)
[2019-02-11] MEDS: INSULIN LISPRO (LOW DOSE) 100 UNITS/ML SUBCUT SCH ×3 (06:28→17:27)
[2019-02-11] MEDS: BLOOD SUGAR DIAGNOSTIC STRIP TEST SCH ×4 (06:28→21:30)
[2019-02-11] MEDS: INSULIN LISPRO 100 UNITS/ML SUBCUT SCH ×3 (07:00→17:28)
[2019-02-11 08:00] VITALS: BP 116/58
[2019-02-11] MEDS: SERTRALINE HCL 25MG TABLET PO SCH (08:22)
[2019-02-11] MEDS: DUTASTERIDE 0.5MG CAPSULE PO SCH (08:22)
[2019-02-11] MEDS: FAMOTIDINE 20MG TABLET PO SCH ×2 (08:22→21:29)
[2019-02-11] MEDS: METOPROLOL TARTRATE 25MG TABLET PO SCH ×2 (08:23→21:00)
[2019-02-11] MEDS: DOCUSATE SODIUM 100MG CAPSULE PO SCH ×2 (08:23→17:15)
[2019-02-11] MEDS: MIDODRINE HCL 2.5MG TABLET PO SCH ×3 (08:23→17:15)
[2019-02-11 10:08] LABS: BASOPHILS % 0.9 % (0.0-2.0); EOSINOPHILS % 2.2 % (0.0-5.0); HEMATOCRIT. 38.2 % (42.0-52.0); HEMOGLOBIN. 12.5 g/dL (14.0-18.0); LYMPHOCYTES % 25.1 % (20.0-50.0); MEAN CORPUSCULAR HEMOGLOBIN 31.2 pg (28.0-32.0); MEAN CORPUSCULAR VOLUME 95.4 fL (80.0-94.0); MEAN PLATELET VOLUME 8.3 fl (7.4-10.4); MONOCYTES % 9.5 % (2.0-8.0); NEUTROPHILS % 62.3 % (40.0-76.0); PLATELET 233 x1000/uL (130-400); RED BLOOD CELL COUNT 4.01 mill/uL (4.7-6.1); RED CELL DISTRIBUTION WIDTH 14.7 % (11.6-14.6)
[2019-02-11 10:15] LABS: INR 1.6; PROTHROMBIN TIME 16.3 sec (9.1-11.1)
[2019-02-11 10:18] LABS: CHLORIDE 107 mEq/L (98-107)
[2019-02-11] MEDS: ENOXAPARIN 80MG/0.8ML SYR SUBCUT SCH (12:13)
[2019-02-11] MEDS ORDERED: WARFARIN SODIUM 10MG TABLET PO NR (19:00)
[2019-02-11 20:00] VITALS: BP 110/50
[2019-02-11] MEDS: POLYETHYLENE GLYCOL 3350 (17GM) 1 DOSE PACK PO SCH (21:29)
[2019-02-11] MEDS: TAMSULOSIN HCL 0.4MG SR CAPSULE PO SCH (21:29)
[2019-02-11] MEDS: INSULIN GLARGINE UD 100 UNITS/ML SYR SUBCUT SCH (21:31)
[2019-02-12] MEDS: ENOXAPARIN 80MG/0.8ML SYR SUBCUT SCH ×3 (00:33→21:59)
[2019-02-12] MEDS: BLOOD SUGAR DIAGNOSTIC STRIP TEST SCH ×4 (05:38→21:52)
[2019-02-12] MEDS: INSULIN LISPRO (LOW DOSE) 100 UNITS/ML SUBCUT SCH ×3 (06:44→17:00)
[2019-02-12] MEDS: INSULIN LISPRO 100 UNITS/ML SUBCUT SCH ×3 (06:45→18:12)
[2019-02-12 06:52] LABS: PROTHROMBIN TIME 19.7 sec (9.1-11.1)
[2019-02-12 08:00] VITALS: BP 119/61
[2019-02-12] MEDS: DUTASTERIDE 0.5MG CAPSULE PO SCH (08:14)
[2019-02-12] MEDS: MIDODRINE HCL 2.5MG TABLET PO SCH ×3 (08:15→18:11)
[2019-02-12] MEDS: METOPROLOL TARTRATE 25MG TABLET PO SCH ×2 (08:15→21:00)
[2019-02-12] MEDS: FAMOTIDINE 20MG TABLET PO SCH ×2 (08:15→21:52)
[2019-02-12] MEDS: SERTRALINE HCL 25MG TABLET PO SCH (08:15)
[2019-02-12] MEDS: DOCUSATE SODIUM 100MG CAPSULE PO SCH ×2 (08:16→18:11)
[2019-02-12 13:06] LABS: 25-HYDROXY VITAMIN D3 30 ng/mL (.)
[2019-02-12] MEDS ORDERED: WARFARIN SODIUM 4MG TABLET PO SCH (18:00)
[2019-02-12 20:00] VITALS: BP 100/52
[2019-02-12] MEDS: DIPHENHYDRAMINE 50MG CAPSULE PO PRN (21:52)
[2019-02-12] MEDS: TAMSULOSIN HCL 0.4MG SR CAPSULE PO SCH (21:52)
[2019-02-12] MEDS: POLYETHYLENE GLYCOL 3350 (17GM) 1 DOSE PACK PO SCH (21:52)
[2019-02-12] MEDS: INSULIN GLARGINE UD 100 UNITS/ML SYR SUBCUT SCH (22:09)
[2019-02-13] MEDS: BLOOD SUGAR DIAGNOSTIC STRIP TEST SCH ×4 (05:49→21:17)
[2019-02-13 05:51] LABS: INR 2.1; PROTHROMBIN TIME 20.7 sec (9.1-11.1)
[2019-02-13 08:00] VITALS: BP 104/44
[2019-02-13] MEDS: METOPROLOL TARTRATE 25MG TABLET PO SCH ×2 (09:00→21:00)
[2019-02-13] MEDS ORDERED: ERGOCALCIFEROL 50000UNITS CAPSULE PO SCH (09:00)
[2019-02-13] MEDS: INSULIN LISPRO 100 UNITS/ML SUBCUT SCH ×6 (09:00→17:18)
[2019-02-13] MEDS: FAMOTIDINE 20MG TABLET PO SCH ×2 (09:31→21:17)
[2019-02-13] MEDS: DOCUSATE SODIUM 100MG CAPSULE PO SCH ×2 (09:31→17:16)
[2019-02-13] MEDS: DUTASTERIDE 0.5MG CAPSULE PO SCH (09:31)
[2019-02-13] MEDS: ENOXAPARIN 80MG/0.8ML SYR SUBCUT SCH (09:32)
[2019-02-13] MEDS: SERTRALINE HCL 25MG TABLET PO SCH (09:32)
[2019-02-13] MEDS: MIDODRINE HCL 2.5MG TABLET PO SCH ×3 (09:38→17:29)
[2019-02-13 12:00] VITALS: BP 98/40
[2019-02-13 17:06] LABS: QFT MITOGEN VALUE 1.15 IU/mL (.); QFT TB GOLD PLUS Negative (Negative); QFT TB1 AG VALUE 0.05 IU/mL (.)
[2019-02-13] MEDS ORDERED: WARFARIN SODIUM 3MG TABLET PO NR (18:00)
[2019-02-13 20:00] VITALS: BP 104/52
[2019-02-13] MEDS: TAMSULOSIN HCL 0.4MG SR CAPSULE PO SCH (21:17)
[2019-02-13] MEDS: POLYETHYLENE GLYCOL 3350 (17GM) 1 DOSE PACK PO SCH (21:26)
[2019-02-13] MEDS: INSULIN GLARGINE UD 100 UNITS/ML SYR SUBCUT SCH (21:28)
[2019-02-13] MEDS: DIPHENHYDRAMINE 50MG CAPSULE PO PRN (23:37)
[2019-02-14] MEDS: BLOOD SUGAR DIAGNOSTIC STRIP TEST SCH ×4 (06:16→21:27)
[2019-02-14] MEDS: INSULIN LISPRO 100 UNITS/ML SUBCUT SCH ×6 (06:51→17:27)
[2019-02-14 08:00] VITALS: BP 108/87
[2019-02-14] MEDS: MIDODRINE HCL 2.5MG TABLET PO SCH ×3 (08:47→17:11)
[2019-02-14] MEDS: DOCUSATE SODIUM 100MG CAPSULE PO SCH ×2 (08:47→17:10)
[2019-02-14] MEDS: FAMOTIDINE 20MG TABLET PO SCH ×2 (08:47→21:10)
[2019-02-14] MEDS: DUTASTERIDE 0.5MG CAPSULE PO SCH (08:47)
[2019-02-14] MEDS: METOPROLOL TARTRATE 25MG TABLET PO SCH ×2 (08:48→21:10)
[2019-02-14] MEDS: SERTRALINE HCL 25MG TABLET PO SCH (08:51)
[2019-02-14 10:28] LABS: INR 2.5; PROTHROMBIN TIME 24.3 sec (9.1-11.1)
[2019-02-14] MEDS ORDERED: WARFARIN SODIUM 4MG TABLET PO NR (18:00)
[2019-02-14 20:00] VITALS: BP 114/61
[2019-02-14] MEDS: TAMSULOSIN HCL 0.4MG SR CAPSULE PO SCH (21:09)
[2019-02-14] MEDS: DIPHENHYDRAMINE 50MG CAPSULE PO PRN (21:09)
[2019-02-14] MEDS: POLYETHYLENE GLYCOL 3350 (17GM) 1 DOSE PACK PO SCH (21:10)
[2019-02-14] MEDS: INSULIN GLARGINE UD 100 UNITS/ML SYR SUBCUT SCH (21:27)
[2019-02-15] MEDS: BLOOD SUGAR DIAGNOSTIC STRIP TEST SCH ×4 (06:23→21:41)
[2019-02-15 07:23] LABS: INR 2.2
[2019-02-15 07:44] LABS: BASOPHILS % 0.9 % (0.0-2.0); EOSINOPHILS % 3.9 % (0.0-5.0); HEMATOCRIT. 38.3 % (42.0-52.0); HEMOGLOBIN. 12.5 g/dL (14.0-18.0); LYMPHOCYTES % 42.5 % (20.0-50.0); MEAN CORPUSCULAR HEMOGLOBIN 31.1 pg (28.0-32.0); MEAN CORPUSCULAR VOLUME 95.3 fL (80.0-94.0); MEAN PLATELET VOLUME 8.6 fl (7.4-10.4); MONOCYTES % 10.3 % (2.0-8.0); NEUTROPHILS % 42.4 % (40.0-76.0); PLATELET 238 x1000/uL (130-400); RED BLOOD CELL COUNT 4.01 mill/uL (4.7-6.1); RED CELL DISTRIBUTION WIDTH 14.8 % (11.6-14.6)
[2019-02-15 08:00] VITALS: BP 103/51
[2019-02-15 08:33] LABS: CHLORIDE 105 mEq/L (98-107)
[2019-02-15] MEDS: FAMOTIDINE 20MG TABLET PO SCH ×2 (08:35→22:14)
[2019-02-15] MEDS: MIDODRINE HCL 2.5MG TABLET PO SCH ×3 (08:35→17:02)
[2019-02-15] MEDS: DOCUSATE SODIUM 100MG CAPSULE PO SCH ×2 (08:35→17:02)
[2019-02-15] MEDS: SERTRALINE HCL 25MG TABLET PO SCH (08:36)
[2019-02-15] MEDS: METOPROLOL TARTRATE 25MG TABLET PO SCH ×2 (08:36→21:00)
[2019-02-15] MEDS: DUTASTERIDE 0.5MG CAPSULE PO SCH (08:36)
[2019-02-15] MEDS: INSULIN LISPRO 100 UNITS/ML SUBCUT SCH ×6 (08:43→18:18)
[2019-02-15] MEDS: ACETAMINOPHEN 325MG TABLET PO PRN (14:31)
[2019-02-15] MEDS ORDERED: WARFARIN SODIUM 3MG TABLET PO SCH (18:00)
[2019-02-15 20:00] VITALS: BP 99/42
[2019-02-15] MEDS: POLYETHYLENE GLYCOL 3350 (17GM) 1 DOSE PACK PO SCH (21:00)
[2019-02-15] MEDS: TAMSULOSIN HCL 0.4MG SR CAPSULE PO SCH (22:14)
[2019-02-15] MEDS: INSULIN GLARGINE UD 100 UNITS/ML SYR SUBCUT SCH (22:18)
[2019-02-16] MEDS: BLOOD SUGAR DIAGNOSTIC STRIP TEST SCH ×4 (06:14→21:00)
[2019-02-16 06:16] LABS: INR 2.3; PROTHROMBIN TIME 23.2 sec (9.1-11.1)
[2019-02-16 07:53] VITALS: BP 100/55
[2019-02-16] MEDS: INSULIN LISPRO 100 UNITS/ML SUBCUT SCH ×6 (08:29→17:27)
[2019-02-16] MEDS: DUTASTERIDE 0.5MG CAPSULE PO SCH (08:31)
[2019-02-16] MEDS: SERTRALINE HCL 25MG TABLET PO SCH (08:32)
[2019-02-16] MEDS: MIDODRINE HCL 2.5MG TABLET PO SCH ×3 (08:32→17:25)
[2019-02-16] MEDS: DOCUSATE SODIUM 100MG CAPSULE PO SCH ×2 (08:32→17:25)
[2019-02-16] MEDS: FAMOTIDINE 20MG TABLET PO SCH ×2 (08:32→22:31)
[2019-02-16] MEDS: METOPROLOL TARTRATE 25MG TABLET PO SCH ×2 (09:00→22:30)
[2019-02-16] MEDS ORDERED: WARFARIN SODIUM 3MG TABLET PO NR (18:00)
[2019-02-16 20:00] VITALS: BP 121/63
[2019-02-16] MEDS: POLYETHYLENE GLYCOL 3350 (17GM) 1 DOSE PACK PO SCH (21:00)
[2019-02-16] MEDS: TAMSULOSIN HCL 0.4MG SR CAPSULE PO SCH (22:28)
[2019-02-16] MEDS: INSULIN GLARGINE UD 100 UNITS/ML SYR SUBCUT SCH (22:32)
[2019-02-16] MEDS: DIPHENHYDRAMINE 50MG CAPSULE PO PRN (22:44)
[2019-02-17 06:35] LABS: INR 2.1; PROTHROMBIN TIME 21.2 sec (9.6-11.0)
[2019-02-17] MEDS: BLOOD SUGAR DIAGNOSTIC STRIP TEST SCH ×2 (06:46→11:15)
[2019-02-17 08:01] VITALS: BP 137/59
[2019-02-17] MEDS: FAMOTIDINE 20MG TABLET PO SCH (08:54)
[2019-02-17] MEDS: DOCUSATE SODIUM 100MG CAPSULE PO SCH (08:54)
[2019-02-17] MEDS: MIDODRINE HCL 2.5MG TABLET PO SCH ×2 (08:54→12:24)
[2019-02-17] MEDS: SERTRALINE HCL 25MG TABLET PO SCH (08:54)
[2019-02-17] MEDS: DUTASTERIDE 0.5MG CAPSULE PO SCH (08:54)
[2019-02-17] MEDS: METOPROLOL TARTRATE 25MG TABLET PO SCH (08:55)
[2019-02-17] MEDS: INSULIN LISPRO 100 UNITS/ML SUBCUT SCH ×4 (09:00→12:28)
[2019-02-17] MEDS: DIPHENHYDRAMINE 50MG CAPSULE PO PRN (09:27)
[2019-02-17 10:43] VITALS: BP 137/59
[2019-02-17] MEDS ORDERED: WARFARIN SODIUM 4MG TABLET PO SCH (18:00)
== END 2019-02-17 15:00 | disposition home health service (06) | DRG 91 ==
PROVIDERS: ADMIT Physical Medicine & Rehabilitation Spinal Cord Injury Medicine; ATTEND Internal Medicine
DX: G92 Toxic encephalopathy (principal); E10.10 Type 1 diabetes mellitus with ketoacidosis without coma; E46 Unspecified protein-calorie malnutrition; D68.59 Other primary thrombophilia; I82.431 Acute embolism and thrombosis of right popliteal vein; I82.411 Acute embolism and thrombosis of right femoral vein; N17.9 Acute kidney failure, unspecified; F33.1 Major depressive disorder, recurrent, moderate; D72.819 Decreased white blood cell count, unspecified; D64.9 Anemia, unspecified; I10 Essential (primary) hypertension; E78.00 Pure hypercholesterolemia, unspecified; G89.29 Other chronic pain; H54.8 Legal blindness, as defined in USA; I48.0 Paroxysmal atrial fibrillation; N40.0 Benign prostatic hyperplasia without lower urinary tract symptoms; R13.10 Dysphagia, unspecified; Z79.4 Long term (current) use of insulin; Z82.49 Family history of ischemic heart disease and other diseases of the circulatory system; Z86.718 Personal history of other venous thrombosis and embolism; Z86.73 Personal history of transient ischemic attack (TIA), and cerebral infarction without residual deficits; T45.515A Adverse effect of anticoagulants, initial encounter; E10.40 Type 1 diabetes mellitus with diabetic neuropathy, unspecified; E10.319 Type 1 diabetes mellitus with unspecified diabetic retinopathy without macular edema; I95.1 Orthostatic hypotension; Z68.26 Body mass index [BMI] 26.0-26.9, adult
CPT/HCPCS: 36415; 80048; 80061; 82024; 82088; 82306; 82533; 82607; 82728; 82746; 82962; 83036; 83540; 83550; 83735; 84100; 84134; 84153; 84443; 84681; 85027; 86480; 92523; 92610; 93970; 97110; 97112; 97116; 97150; 97163; 97166; 97530; 97535; J0834; J1650; J1815; J3490; J7050; Q0162; Q0163; A4315; A5200; G0103